=== PATIENT | female | born 1990 | race Caucasian/White ===

== ENCOUNTER → 2018-01-20 | Emergency (ER) | payer OTHER ==
--- NOTE | 2018-01-20 00:27 | PDOC ---
History of Present Illness - History of Present Illness Initial Comments: 01/20/18 00:39 Patient is a 27 year old female A1 who presents today with frequency and suprapubic pressure. Patient states that she is 21 weeks . Her LMP was on 08/27/17. She states that a couple hours ago she began experiencing pressure in her pelvic region which she normally has experienced throughout the . However she states that the pressure has intensified and it now feels as if someone is sitting on her bladder. She reports urinary frequency and feel like she has to use the bathroom every couple of minutes or so. She denies recent fever, chills, dysuria or vaginal bleeding. PCP: Karen Frederick <Desiree Meade - Last Filed: 01/20/18 00:41> <Leona Roach - Last Filed: 01/20/18 02:35> - General Stated Complaint: VAGINAL DISCOMFORT 21 WEEKS Time Seen by Provider: 01/20/18 00:13 Past History <Desiree Meade - Last Filed: 01/20/18 00:41> <Leona Roach - Last Filed: 01/20/18 02:35> - Past Medical History Allergies/Adverse Reactions: Allergies Allergy/AdvReac Type Severity Reaction Status Date / Time No Known Allergies Allergy Verified 01/20/18 00:40 Home Medications: Ambulatory Orders NK [No Known Home Medication] 01/20/18 Review of Systems - Review of Systems Comments:: 01/20/18 00:39 CONSTITUTIONAL: Absent: fever, chills, diaphoresis, generalized weakness, malaise, loss of appetite HEENT: Absent: rhinorrhea, nasal congestion, throat pain, throat swelling, difficulty swallowing, mouth swelling, ear pain, eye pain, visual changes CARDIOVASCULAR: Absent: chest pain, syncope, palpitations, irregular heart rate, lightheadedness , peripheral edema RESPIRATORY: Absent: cough, shortness of breath, dyspnea with exertion, orthopnea, wheezing, stridor, hemoptysis GASTROINTESTINAL Present: suprapubic pain Absent: abdominal distension, nausea, vomiting, diarrhea, constipation, melena, hematochezia GENITOURINARY: Present: frequency, urgency Absent: dysuria, hesitancy, hematuria, flank pain, genital pain MUSCULOSKELETAL: Absent: myalgia, arthralgia, joint swelling SKIN: Absent: rash, itching, pallor HEMATOLOGIC/IMMUNOLOGIC: Absent: easy bleeding, easy bruising, lymphadenopathy, frequent infections ENDOCRINE: Absent: unexplained weight gain, unexplained weight loss, heat intolerance, cold intolerance NEUROLOGIC: Absent: headache, focal weakness or paresthesias, dizziness, unsteady gait, seizure, mental status changes, bladder or bowel incontinence PSYCHIATRIC: Absent: anxiety, depression, suicidal or homicidal ideation, hallucinations. 01/20/18 00:41 <Desiree Meade - Last Filed: 01/20/18 00:41> *Physical Exam - Vital Signs Last Vital Signs Temp Pulse Resp BP Pulse Ox 98.1 F 98 H 18 129/69 98 01/20/18 00:34 01/20/18 00:34 01/20/18 00:34 01/20/18 00:34 01/20/18 00:34 - Physical Exam Comments: 01/20/18 00:42 GENERAL: Well developed, well nourished. Awake and alert. No acute distress. HEENT: Normocephalic, atraumatic. PERRLA, EOMI. No conjunctival pallor. Sclera are non- icteric. Moist mucous membranes. Oropharynx is clear. NECK: Supple. Full ROM. No JVD. No bruits. No thyromegaly. No lymphadenopathy. CARDIOVASCULAR: Regular rate and rhythm. No murmurs, rubs, or gallops. Distal pulses are 2+ and symmetric. PULMONARY: No evidence of respiratory distress. Lungs clear to auscultation bilaterally. No wheezing, rales or rhonchi. ABDOMINAL: Soft. Protuberant (pregnanct). Suprapubic discomfort. Non-distended. No rebound or guarding. No organomegaly. Normoactive bowel sounds. MUSCULOSKELETAL Normal range of motion at all joints. No bony deformities or tenderness. No CVA tenderness. EXTREMITIES: No cyanosis. No clubbing. No edema. No calf tenderness. SKIN: Warm and dry. Normal capillary refill. No rashes. No jaundice. NEUROLOGICAL: Alert, awake, appropriate. <Desiree Meade - Last Filed: 01/20/18 00:41> Medical Decision Making - Medical Decision Making 01/20/18 01:40 [id number] 1 p/w pelvic discomfort pelvic US reveals sl iup 20 weeks 3 days FHT 146 closed cervix pt sent to [facility] for monitoring 01/20/18 02:34 <Leona Roach - Last Filed: 01/20/18 02:35> *DC/Admit/Observation/Transfer - Attestations Scribe Attestion: 01/20/18 00:44 Documentation prepared by Desiree Meade, acting as medical director of hospice for Leona Roach MD. <Desiree Meade - Last Filed: 01/20/18 00:41> <Leona Roach - Last Filed: 01/20/18 02:35> Diagnosis at time of Disposition: Pelvic pain, 20 or more weeks gestation of - Discharge Dispostion Disposition: TRANSFER ACUTE CARE/OTHER HOSP Condition at time of disposition: Stable - Referrals Referrals: Karen Frederick [Primary Care Provider] - - Patient Instructions Printed Discharge Instructions: DI for -- Discomforts and Remedies, DI for Pelvic Pain - Post Discharge Activity
[2018-01-20 00:39] VITALS: BP 129/69; PULSE 98; TEMP 98.1; BMI 33.6
[2018-01-20 00:53] LABS: URINE APPEARANCE SLCLOUDY; URINE BILIRUBIN NEGATIVE (<2.0 mg/dL); URINE COLOR YELLOW; URINE GLUCOSE (UA) NEGATIVE (NEGATIVE); URINE KETONE 2+ (NEGATIVE); URINE LEUK ESTERASE NEGATIVE (NEGATIVE); URINE NITRITE NEGATIVE (NEGATIVE); URINE PROTEIN NEGATIVE (NEGATIVE); URINE UROBILINOGEN NEGATIVE mg/dL (0.2-1.0)
[2018-01-20 00:57] LABS: EPI CELLS RARE /HPF (FEW); URINE BACTERIA RARE /hpf (NONE SEEN); URINE MUCUS RARE
== END | disposition home or self-care (01) ==
LOC: JER 00:02
DX: O26.892 Other specified pregnancy related conditions, second trimester (principal); R10.2 Pelvic and perineal pain; Z3A.20 20 weeks gestation of pregnancy
CPT/HCPCS: 76815-TC; 81003; 81015; 99281-25